=== PATIENT | female | born 1945 | race Caucasian/White ===

== ENCOUNTER 2023-08-05 12:42 | Emergency (ER) | payer OTHER ==
[2023-08-05 13:36] VITALS: BP 134/59; PULSE 92; RESP 18; TEMP 98.5; BMI 34.2
[2023-08-05] MEDS ORDERED: ACETAMINOPHEN 325 MG TABLET (FP) ONE (13:58)
[2023-08-05] MEDS: ACETAMINOPHEN 500 MG TABLET (FP) PO ONE (14:07)
[2023-08-05] MEDS: ACETAMINOPHEN 325 MG TABLET (FP) PO ONE (14:18)
[2023-08-05] MEDS ORDERED: DIPHTH,PERTUSS(ACELL),TET 0.5 ML DISP.SYRIN IM ONE (17:11)
[2023-08-05] MEDS: DIPHTH,PERTUSS(ACELL),TET 0.5 ML DISP.SYRIN IM ONE (17:18)
== END 2023-08-05 17:35 | disposition home or self-care (01) ==
LOC: JER 12:42
PROC: 0HQ1XZZ Repair Face Skin, External Approach (ICD-10-PCS; principal; 2023-08-05)
PROC: 3E0234Z Introduction of Serum, Toxoid and Vaccine into Muscle, Percutaneous Approach (ICD-10-PCS; 2023-08-05)
DX: S01.81XA Laceration without foreign body of other part of head, initial encounter (principal); R07.81 Pleurodynia; M25.511 Pain in right shoulder; G89.29 Other chronic pain; W01.198A Fall on same level from slipping, tripping and stumbling with subsequent striking against other object, initial encounter
CPT/HCPCS: 12013; 70450-TC; 71045-TC-FY; 72125-TC; 72170-TC-FY; 90471; 90715; 99284-25